=== PATIENT | female | born 1955 | race Caucasian/White ===

== ENCOUNTER 2023-10-25 17:57 | Emergency (ER) | payer MEDICARE, SELFPAY ==
[2023-10-25 18:05] VITALS: BP 126/70
[2023-10-25 18:26] LABS: % Basophils 0.4 % (0-2); % Eosinophils 1.9 % (0-6); % Immature Granulocytes 0.3 % (0-0.5); % Lymphocytes 39.4 % (20.5-51.1); % Monocytes 8.1 % (1.7-9.3); % Neutrophils 49.9 % (42.2-75.2); Absolute Eosinophils 0.2 10^3/uL (0-0.7); Absolute Lymphocytes 3.1 10^3/uL (1.2-3.4); Absolute Monocytes 0.6 10^3/uL (0.1-0.6); Hematocrit 35.2 % (37.0-47.0); Hemoglobin 12.5 g/dL (12.0-16.0); Mean Corp Hgb Conc. 35.5 g/dL (33.0-37.0); Mean Corpuscular Hgb 33.1 pg (27.0-31.0); Mean Corpuscular Volume 93.1 fL (81.0-99.0); Mean Platelet Volume 9.8 fL (7.4-10.4); Nucleated Red Blood Cells % 0 %; Platelet Count 267 10^3/uL (130-400); Red Blood Cell Count 3.78 10^6/uL (4.20-5.40); Red Cell Dist. Width 12.8 % (11.5-14.5); White Blood Cell Count 7.9 10^3/uL (4.8-10.8)
--- NOTE | 2023-10-25 18:26 | ED.GENMED ---
History of Present Illness
General
Chief Complaint: Skin Surface Trauma
Source: patient
Exam Limitations: none
Time Seen by Provider: 10/25/23 18:24
History of Present Illness
History of Present Illness:
See MDM
Past History
Past History
ED Past Medical History: GERD and Other (Chronic sinusitis, Mitral valve prolapse, Neuropathy)
ED Past Surgical History: None
Social History
Tobacco: Non-smoker
Alcohol: None
Personal:
Living: with family
Phy Exam
Physical Exam
Physical Exam:
See MDM
Course
Orders/Labs/Results
Orders:
Orders
10/25/23 18:20
Electrocardiogram (*1) Urgent
Reason for Study: Syncope
EKG- Treatment ONCE
10/25/23 18:21
Complete Blood Count/With Diff Urgent
Comprehensive Metabolic Panel Urgent
10/25/23 18:24
CT Facial Bones W/o Iv Contras Urgent
Comment:
Reason For Exam: fall, nasal pain
CT Head W/o Iv Contrast Urgent
Comment:
Reason For Exam: fall, head injury
0.9% Sodium Chloride 1000 ml [Nss] 1,000 ml IV BOLUS
Tetanus/Diphth/Acelpertussis [Adacel] 0.5 ml IM .ONCE ONE
10/25/23 18:26
Morphine Sulfate 4 mg IV NOW STA
10/25/23 19:37
Amoxicillin 875 mg/Clav 125 mg [Augmentin 875 mg/125 mg] 1 tablet PO NOW STA
Gabapentin [Neurontin] 600 mg PO ONCE ONE
Ketorolac [Toradol] 30 mg IV NOW STA
Oxycodone/Acetaminophen [Percocet 5/325] 1 tablet PO NOW STA
Abnormal Lab Results
10/25/23
18:21
RBC 3.78 L 10^6/uL
(4.20-5.40)
Hct 35.2 L %
(37.0-47.0)
MCH 33.1 H pg
(27.0-31.0)
Sodium 130 L mmol/L
(135-145)
Glucose 105 H mg/dl
(70-99)
AST 48 H U/L
(14-36)
10/25/23 18:21
10/25/23 18:21
Vital Signs
Initial and Last Documented VS:
Initial Vital Signs
Temp Pulse Resp BP Pulse Ox
98.1 F 95 16 126/70 98
10/25/23 18:05 10/25/23 18:05 10/25/23 18:05 10/25/23 18:05 10/25/23 18:05
Last Documented Vital Signs
Temp Pulse Resp BP Pulse Ox
98.1 F 83 12 143/69 100
10/25/23 18:05 10/25/23 19:15 10/25/23 19:15 10/25/23 19:00 10/25/23 19:15
Procedures
Laceration Closure
mid upper lip:
Status of Wound: clean
Size of Wound in cm: 1
Description of Wound Edges: ragged
Preparation: cleaned with saline
Anesthesia: 1% Lidocaine
Revision/Debridement: minor revision
Wound exploration: explored to base- no FB
Type of Closure: single layer closure
Skin Closure Material: 6-0 nylon
Number of sutures: 1
MDM/Problems Addressed
Differential Diagnosis Includes:
HPI and MDM Narrative:
68-year-old female presenting with trip and fall. Patient was going for a run and she tripped on a rock and fell forward. She hit the front part of her face. Patient came to the emergency department for evaluation. While sitting in the chair,
she syncopized and was brought back immediately. Patient believes that her syncope was related to the stress of the current situation and dealing with current medical issues with her
Patient is unsure about her last tetanus shot. Will update tetanus
Patient has small laceration to upper mid lip
Physical exam
General: Well appearing and non-toxic
HEENT: protecting airway. Abrasion to mid nose without septal hematoma. Small laceration and abrasion to upper front lip. The abrasion has removed a layer of skin near the vermilion border. There is a small laceration to her mid upper lip
Neck: supple
CV: No evidence of cyanosis. Regular rate and rhythm
Resp: No accessory muscle use
Abd: Non-distended
Extremities: No deformities
Neuro: alert
Psych: Mildly anxious
Skin: Intact
Problems Addressed including Acute and Chronic Conditions affecting care:
1. Head injury
Acuity: acute
Prognosis: stable
Details: Will obtain CT head and face. Will repair lip laceration
2. Syncope
Acuity: acute
Prognosis: stable
Details: Likely in the setting of a vasovagal given current stress and chain of events. Will continue to monitor on telemetry
Updates
CT head and face neg. Pt feels ok going home. Will start augmentin given the facial injuries
Differential Diagnosis (but not limited to): Nasal fracture, concussion, hemorrhage, syncope, cardiac arrhythmia
Testing considered: Troponin
Drug therapy (if applicable): OTC meds, please see d/c instruction regarding Rx drugs
Amount and/or Complexity of Data Reviewed
Clinical info obtained from: Patient
External data reviewed: N/A
Labs I independently reviewed (but not limited to): Sodium 130
Radiology: The CT scan was personally and independently reviewed. In addition, official CT report reviewed.
Pulse Ox: not hypoxic
EKG independently reviewed: Sinus rhythm, PVCs, rightward axis, no STEMI
Buckle Assembler: Sinus rhythm
Critical Care: N/A
Risk of Complication:
Social Determinants of health: Good social support
Discussed with other providers: N/A
Escalation of Care includes Admit/Obs: After being observed in the Emergency Department, pt stable for discharge.
Occasional wrong word or 'sound a like' substitutions may have occurred due to the inherent limitations of voice recognition software. Read the chart carefully and recognize, using context, where substitutions have occurred.
*Critical Care Note
Total Time (30-74mins, 75-104mins- exclusive of procedures): Not Applicable
ED Attending Note
-
Portions of this chart may have been created with voice recognition software.� Occasional wrong word or��sound alike� substitutions may have occurred due to the inherent limitations of voice recognition software.
Discharge Plan
Departure
Patient Disposition: Home (Routine Discharge)
Date of Disposition: 10/25/23
Time of Disposition: 19:44
Patient with high blood pressure during this ER visit?: Yes
Discharge Problem:
Abrasion of face, Laceration of lip, Syncope
Instructions: Syncope (fainting), Laceration Repair With Stitches (DC)
Prescriptions:
New
amoxicillin-pot clavulanate 875-125 mg tablet
1 tab PO BID Qty: 14 0RF
oxycodone 5 mg tablet
5 mg PO Q8H PRN (Reason: Pain) Qty: 10 0RF
No Action
cimetidine [Tagamet] 800 MG tablet
800 mg PO BID
fluticasone propionate 1 SPRAY spray,suspension
1 spray intranasal DAILY
Patient Comments:
1 spray in each nostril daily
Benadryl D
1 tab PO BID
ondansetron HCl 4 MG tablet
4 mg PO Q8HPRN PRN (Reason: Nausea/Vomiting) Qty: 5 0RF
alprazolam 0.25 mg Tablet
0.25 mg PO HS
Referrals:
UNKNOWN - PT DOES,NOT KNOW [Unknown Provider] -
Activity Restrictions/Additional Instructions:
Please return for any worsening symptoms.
You may return at any time if you have further concerns.
Please follow up with your doctor at the first available appointment, preferably this week.
Thank you for choosing [facility].
Keep wound clean and dry, change dressing if it becomes soiled or wet. Watch for signs of infection: fever over 100.5�, increasing pain, red streaks around wound, swelling, drainage of pus, or bad smell. If any of these happen, return to ED
promptly. Return to ED or make an appointment with your doctor to have the 1 suture removed in 5-7 days. All wounds may scar, however you may reduce the appearance of scarring by avoiding sun exposure to the scar and applying skin moisturizer with
spf protection to the scar once the wound is healed.
Interventions
Interventions:
*ED COVID-19 Vaccine History Last Done: 10/25/23 18:05
ED-Skin Assessment Last Done: 10/25/23 19:05
Discharge Date and Time
Print Language: PANAMANIAN
[2023-10-25] MEDS: NSS 1000 IV (18:28)
[2023-10-25] MEDS: MORPHINE SULFATE 4 MG IV (18:29)
[2023-10-25] MEDS: ADACEL 0.5 ML IM (18:31)
[2023-10-25 18:55] LABS: ALT (SGPT) 34 U/L (0-35); AST (SGOT) 48 U/L (14-36); Albumin 4.5 g/dl (3.5-5.0); Alkaline Phosphatase 96 U/L (38-126); Blood Urea Nitrogen 11 mg/dl (7-17); Calcium 9.1 mg/dl (8.4-10.2); Carbon Dioxide 22 mmol/L (22-30); Chloride 99 mmol/L (98-107); Glucose 105 mg/dl (70-99); Potassium 4.3 mmol/L (3.5-5.1); Sodium 130 mmol/L (135-145); Total Bilirubin 0.5 mg/dl (0.2-1.3); Total Protein 6.8 g/dl (6.3-8.2); eGFR > 60.00
[2023-10-25 19:00] VITALS: BP 143/69
[2023-10-25 19:57] VITALS: BP 141/71
[2023-10-25 20:00] VITALS: BP 144/66
[2023-10-25] MEDS: AUGMENTIN 875 MG/125 MG 1 TABLET PO (20:01)
[2023-10-25] MEDS: TORADOL 30 MG IV (20:01)
[2023-10-25] MEDS: PERCOCET 5/325 1 TABLET PO (20:01)
[2023-10-25] MEDS: NEURONTIN 600 MG PO (20:01)
== END 2023-10-25 20:10 | disposition home or self-care (01) ==
LOC: EMR 17:57
PROVIDERS: EMERGENCY PHYSICIAN Student in an Organized Health Care Education/Training Program; FAMILY PHYSICIAN Internal Medicine
DX: R55 Syncope and collapse (principal); S01.511A Laceration without foreign body of lip, initial encounter; W01.0XXA Fall on same level from slipping, tripping and stumbling without subsequent striking against object, initial encounter; R03.0 Elevated blood-pressure reading, without diagnosis of hypertension; Z23 Encounter for immunization
CPT/HCPCS: 99285; 96374; 96375; 96361; 12011; 90471; 70450; 70486; 80053; 85025; 90715; 93005